=== PATIENT | female | born 1985 | race Caucasian/White ===

== ENCOUNTER 2021-10-08 13:44 | Outpatient (REF) | payer BC, SELFPAY | END 2021-10-08 13:45 | disposition home or self-care (01) | LOC: HO.LNP 13:44 | PROVIDERS: Visit Provider Hospitalist | DX: Z20.822 Contact with and (suspected) exposure to COVID-19 (principal) | CPT/HCPCS: U0003; U0005 ==

== ENCOUNTER 2024-05-24 18:56 | Emergency (ER) | payer OTHER, SELFPAY ==
--- NOTE | ~2024-05-24 | CT_ITS ---
EXAMINATION: CT HEAD WITHOUT CONTRAST CT CERVICAL SPINE WITHOUT CONTRAST CLINICAL INFORMATION: Fall with head strike on anticoagulation. Pain. COMPARISON: None available. TECHNIQUE: Contiguous axial imaging was performed from the skull base to vertex without intravenous administration of contrast. Contiguous axial CT images of the cervical spine were obtained without contrast. Sagittal and coronal reformats were provided and reviewed. This CT examination was performed using dose optimization techniques as appropriate, variously including the following: *Automated exposure control *Adjustment of mA and/or kV according to patient size (this includes techniques or standardized protocols for targeted exams where dose is matched to indication/reason for exam; i.e. extremities or head) *Use of iterative reconstruction technique DLP: 848 mGy-cm. FINDINGS: HEAD: There is no evidence of acute intracranial hemorrhage or territorial infarction. No abnormal mass effect or midline shift is seen. Urena to white matter differentiation is well preserved. No extra-axial fluid collections are identified. The ventricles are normal in size. There is no abnormal attenuation within the brain parenchyma. The osseous structures and soft tissues are normal. The mastoid air cells and visualized portions of the paranasal sinuses are well aerated. CERVICAL SPINE: Mild reversal of the normal cervical lordosis which may be positional or related muscle spasm. Grade 1 anterolisthesis of C4 on C5. No acute fracture or subluxation. No loss of vertebral body height. Multilevel loss of intervertebral disc height with endplate osteophytes at C4 through C6. Mild multilevel bilateral facet arthropathy. No lytic or blastic osseous lesion. Unremarkable prevertebral soft tissues. No abnormal soft tissue mass or fluid collection. The right thyroid is heterogeneous and enlarged with multiple hypodense nodules measuring up to 0.9 cm. Given heterogeneity and enlargement, ultrasound is recommended. Visualized lung apices are clear. Mild bilateral neural femoral stenosis at C4-C5 and C5-C6. No significant central canal stenosis. CT/CT cervical spine wo IV con IMPRESSION: HEAD: No acute intracranial hemorrhage or mass effect. CERVICAL SPINE: 1. No acute fracture or subluxation. Mild reversal of the normal cervical lordosis which may be positional or related to muscular spasm. Grade 1 anterolisthesis of C4 on C5. Multilevel degenerative disc disease and bilateral facet arthropathy with bilateral neural foraminal stenosis at C4-C5 and C5-C6. 2. Heterogeneous and enlarged right thyroid with multiple hypodense nodules measuring up to 0.9 cm. Given heterogeneity and enlargement, nonemergent ultrasound is recommended.
--- NOTE | ~2024-05-24 | XR_ITS ---
Examination: XR humerus LT, XR shoulder LT min 2V Indication: fall, r/o trauma Comparison: No pertinent prior studies are currently available for comparison. Technique: 3 views the left shoulder and 2 views of the left humerus obtained Findings: Humeral head is well-seated in the glenoid fossa. I do not appreciate any acute fracture or dislocation about the humerus. No significant bony degenerative or destructive changes to the glenohumeral or acromioclavicular joint space. Visualized left ribs and chest unremarkable. Normal appearance to the humerus with no obvious visualized elbow joint effusion. Surrounding soft tissues unremarkable. XR/XR shoulder LT min 2V Impression: No acute fracture or dislocation.
--- NOTE | ~2024-05-24 | XR_ITS ---
Examination: XR humerus LT, XR shoulder LT min 2V Indication: fall, r/o trauma Comparison: No pertinent prior studies are currently available for comparison. Technique: 3 views the left shoulder and 2 views of the left humerus obtained Findings: Humeral head is well-seated in the glenoid fossa. I do not appreciate any acute fracture or dislocation about the humerus. No significant bony degenerative or destructive changes to the glenohumeral or acromioclavicular joint space. Visualized left ribs and chest unremarkable. Normal appearance to the humerus with no obvious visualized elbow joint effusion. Surrounding soft tissues unremarkable. XR/XR humerus LT Impression: No acute fracture or dislocation.
[2024-05-24 18:58] VITALS: BP 120/94; PULSE 87; RESP 18; TEMP 36.8; O2SAT 99; BMI 22.0
--- NOTE | 2024-05-24 18:59 | ED_ITS ---
HPI - General Adult General Chief complaint: Fall Stated complaint: Fell and Hit head, Blacked out Time Seen by Provider: 05/24/24 21:30 Source: patient Mode of arrival: ambulatory Limitations: no limitations History of Present Illness ED Provider: Dr. Viola Atkins HPI narrative: Patient comes to the emergency room complaining of a head injury. Patient states that she fell yesterday and does not remember how it happened or where it happened. Patient remembers that she got home somehow and in the morning or her clothes were soaked wet. Patient admits that she has been drinking alcohol. Patient went today to an AA meeting and she was encouraged by the staff to come to the ED to get checked. Patient states that she has a bit pending in [place] for detox. They will pick her up tomorrow in the morning from her house and take her to the facility. Patient states that over last few days, she has had multiple falls. Related Data Home Medications ?Medication ?Instructions ?Recorded ?Confirmed ibuprofen 200 mg tablet 800 mg PO BID 10/08/21 Allergies Allergy/AdvReac Type Severity Reaction Status Date / Time bee pollen [BEE STINGS] Allergy Severe ANAPHYLAXIS Verified 05/24/24 19:02 Sulfa (Sulfonamide Allergy Severe ANAPHYLAXIS Verified 05/24/24 19:02 Antibiotics) [SULFA (SULFONAMIDE ANTIBIOTICS)] Review of Systems 2 Review of Systems: Constitutional : No Weight loss, No Fever, No Chills, No Night Sweats, No Fatigue, No Malaise ENT/Mouth : No Hearing loss, No Ear Pain, No Nasal Congestion, No Sinus Pain, No Hoarseness, No sore throat, No Rhinorrhea, No Swallowing Difficulty Eyes: No Eye Pain, No Swelling, No Redness, No Foreign Body, No Discharge, No Vision Changes Cardiovascular : No Chest Pain, No SOB, No Dyspnea on Exertion, No Orthopnea, No Edema, No Palpitations Respiratory : No Cough, No Sputum, No Wheezing, No Smoke Exposure, No Dyspnea Gastrointestinal : No Nausea, No Vomiting, No Diarrhea, No Constipation, No abdominal Pain, No Hematochezia, No Melena Genitourinary : no irregular bleeding, No Dysuria, No Urinary Frequency, No Hematuria, No Urinary Incontinence, No Urgency, No Flank Pain, No Urinary Flow Changes, No Hesitancy Musculoskeletal : No joint pain, No Myalgias, No Joint Swelling Skin : Patient has multiple ecchymosis brought her but in different stages of healing from multiple falls Neuro : No Weakness, No Numbness, No Paresthesias, No Loss of Consciousness, No Dizziness, No Headache Psych : No Anxiety/Panic, No Depression, No SI/HI/AH/VH, No Social Issues, Heme/Lymph: No Bruising, No Bleeding,No Lymphadenopathy Endocrine : No Polyuria, No Polydipsia, No Temperature Intolerance [facility] Past Medical History Medical History (Updated 05/24/24 @ 23:00 by Viola Atkins MD) Alcohol abuse with physiological dependence Social History Social History Alcohol intake: current Alcohol intake frequency: 3 or more drinks per day Alcohol type: hard liquor Patient Tobacco Use Status: Never used Tobacco Use of substances other than those prescribed or required for medical reasons: Unknown Advance Directives: No Advance Directives on File: No Do you have a plan to hurt others: No Plan Physical Exam ED Vital Signs: Vital Signs - 24 hr 05/24/24 18:58 05/24/24 21:15 Temperature 98.3 F 98.4 F Pulse Rate 87 76 Respiratory Rate 18 16 Blood Pressure 120/94 H 116/77 Pulse Oximetry 99 99 Oxygen Delivery Method Room Air Room Air BMI result Body Mass Index 22.0 Const Other: Appearance: Alert. Oriented X3. No acute distress. Eyes: Pupils equal, round and reactive to light. ENT: Pharynx normal. Neck: Normal inspection. Neck supple. No lymph nodes noted. No crepitus CVS: Normal heart rate and rhythm. Pulses normal. Normal S1 and S2 Respiratory: No respiratory distress. Breath sounds normal. No Wheezing. No rales Abdomen: Soft and nontender. No rigidity. No distention. Skin: Patient has multiple ecchymosis at different stages of healing Extremities: No lower extremity edema. No Lacerations. No Rash Neuro: Oriented X 3. No motor deficit. No sensory deficit. Moving all extremities. No slurred speech. CN 2 through 12 grossly intact Psych: calm, cooperative, normal affect Course Course Course Narrative: This is an RME: Additional HPI, ROS, PE not included below will be deferred to primary provider. RME assessment and note performed by: Linh Santa PA-C This is a [id number], with a hx of DVT on eliquis, and etoh abuse, who presents to the emergency department with complaints of headache s/p fall which occurred yesterday. Patient states that her found her on the ground passed out yesterday. Patient does not remember what happened. She has had increased incidence of falling recently. She went to an AA meeting where she was encouraged to come in to be evaluated. She is approximately 8-9 nips of alcohol this evening. No history of alcohol withdrawal seizures past. Plan: EKG, Ct head, ct cervical, labs Medications Administered Generic Name Dose Route Start Last Admin Trade Name Freq PRN Reason Stop Dose Admin Dextrose/Sodium Chloride 1,000 mls @ 999 mls/hr 05/24/24 21:45 05/24/24 22:21 D5ns IVCONT 999 mls/hr .[id number] MARJAN Administration Discontinued Medications Generic Name Dose Route Start Last Admin Trade Name Freq PRN Reason Stop Dose Admin Thiamine HCl 100 mg/ Sodium 101 mls @ 202 mls/hr 05/24/24 21:40 05/24/24 22:21 Chloride IV 05/24/24 22:09 202 mls/hr ONCE ONE Administration Medical Decision Making Medical Decision Making [facility] Narrative: -patient was given thiamine and D5 normal saline, patient's anion gap was slightly open. -my interpretation of head CT: No intracranial bleed -my interpretation of x-ray of the shoulder and humerus: No fracture, normal alignment -appointment pending tomorrow at 11:00. Today the plan is at her friend will pick her up, take her to her house. Tomorrow morning, the alcohol detox facility from [facility] will pick the patient up and take her to detox. Patient is aware of plan and agrees with it Differential Diagnosis Differential Diagnoses: The differential diagnosis associated with the presentation includes (Alcohol intoxication, alcohol dependence, arm/shoulder fracture, dislocation/contusion) Admission/Observation Consideration of admission/observation: Escalation of care including admission/observation considered (Given patient's multiple injuries in the setting of EtOH, observation was considered) Lab Data [facility] Lab Attestation statement: I reviewed the patient's lab results. 05/24/24 19:42 05/24/24 19:42 Labs: Lab Results 05/24/24 Range/Units 19:42 WBC 8.1 (4.8-10.8) X10*3/uL RBC 4.75 (4.20-5.50) X10*6/uL Hgb 14.7 (12.0-16.0) g/dl Hct 42.1 (37.0-47.0) % MCV 88.6 (80.0-98.0) fL MCH 30.9 (27.0-33.0) pg MCHC 34.9 (31.0-35.0) g/dl RDW 15.9 (11.0-16.0) % Plt Count 436 H (160-400) X10*3/uL MPV 9.0 L (9.4-12.3) fL Immature Gran % (Auto) 0.2 (0.0-0.4) % Neut % (Auto) 74.6 H (45-73) % Lymph % (Auto) 18.8 L (20-40) % [place] % (Auto) 4.9 (2-11) % Eos % (Auto) 0.6 (0-4) % Baso % (Auto) 0.9 (0-2) % Lymph # (Auto) 1.5 (1.2-4.9) X10*3/uL [place] # (Auto) 0.4 (0.1-1.2) X10*3/uL Eos # (Auto) 0.1 (0.0-0.4) X10*3/uL Baso # (Auto) 0.1 (0.0-0.2) X10*3/uL Abs Immat Gran (auto) 0.02 (0.00-0.03) X10*3/uL Absolute Neuts (auto) 6.0 (2.0-8.3) x10*3/uL Absolute Nucleated RBC 0.000 (0.0-0.012) X10*3/uL Nucleated RBC % (auto) 0.0 (0.0-0.2) /100WBC PT 14.9 H (11.1-13.3) SEC INR 1.2 H (0.9-1.1) APTT 32.3 (26.0-36.8) SEC Sodium 136 (135-145) mmol/L Potassium 4.1 (3.3-5.1) mmol/L Chloride 101 (96-108) mmol/L Carbon Dioxide 16 L (22-29) mmol/L Anion Gap 23 H (12-20) BUN 12 (9-16) mg/dL Creatinine 0.87 (0.5-1.4) mg/dL Estim Creat Clear Calc 82.0 Estimated GFR > 60 Random Glucose 104 (60-115) mg/dL Calcium 9.7 (8.4-10.2) mg/dL Magnesium 2.3 (1.6-2.6) mg/dL Total Bilirubin 0.6 (0.0-1.0) mg/dL Direct Bilirubin 0.2 (0.0-0.5) mg/dL AST 72 H (5-31) U/L ALT 62 H (0-31) U/L Alkaline Phosphatase 105 (39-117) U/L Troponin I High Sens < 2.7 (<3.5-17.0) ng/L Total Protein 7.7 (6.5-8.0) g/dL Albumin 4.8 (3.5-5.0) g/dL Urine Color Yellow Urine Appearance Clear Urine pH 5.5 (5.0-9.0) Ur Specific [place] <= 1.005 (1.005-1.025) Urine Protein Negative (Neg-Trace) mg/dL Urine Glucose (UA) Negative (Negative) mg/dL Urine Ketones Negative (Negative) mg/dL Urine Blood Negative (Negative) Urine Nitrite Negative (Negative) Ur Leukocyte Esterase Negative (Negative) Urine Opiates Screen Not Detected (Not Detect) Ur Buprenorphine Scrn Not Detected (Not Detect) ng/mL Ur Oxycodone Screen Not Detected (Not Detect) ng/mL Urine Methadone Screen Not Detected (Not Detect) ng/mL Urine Fentanyl Screen Not Detected (Not Detect) Ur Barbiturates Screen Not Detected (Not Detect) Ur Phencyclidine Scrn Not Detected (Not Detect) Ur Amphetamines Screen Not Detected (Not Detect) U Benzodiazepines Scrn Not Detected (Not Detect) Urine Cocaine Screen Not Detected (Not Detect) U Marijuana (THC) Screen Not Detected (Not Detect) Ethyl Alcohol 303 H* mg/dL Independent Interpretation I performed an independent interpretation of an: Plain X-Ray and CT Scan Radiology Impression Discussion of test interpretation with radiology: I have reviewed the radiologist's reading. Radiologist Impression: Findings: Humeral head is well-seated in the glenoid fossa. I do not appreciate any acute fracture or dislocation about the humerus. No significant bony degenerative or destructive changes to the glenohumeral or acromioclavicular joint space. Visualized left ribs and chest unremarkable. Normal appearance to the humerus with no obvious visualized elbow joint effusion. Surrounding soft tissues unremarkable. XR/XR shoulder LT min 2V Impression: No acute fracture or dislocation. Head and cervical spine CT: HEAD: There is no evidence of acute intracranial hemorrhage or territorial infarction. No abnormal mass effect or midline shift is seen. Urena to white matter differentiation is well preserved. No extra-axial fluid collections are identified. The ventricles are normal in size. There is no abnormal attenuation within the brain parenchyma. The osseous structures and soft tissues are normal. The mastoid air cells and visualized portions of the paranasal sinuses are well aerated. CERVICAL SPINE: Mild reversal of the normal cervical lordosis which may be positional or related muscle spasm. Grade 1 anterolisthesis of C4 on C5. No acute fracture or subluxation. No loss of vertebral body height. Multilevel loss of intervertebral disc height with endplate osteophytes at C4 through C6. Mild multilevel bilateral facet arthropathy. No lytic or blastic osseous lesion. Unremarkable prevertebral soft tissues. No abnormal soft tissue mass or fluid collection. The right thyroid is heterogeneous and enlarged with multiple hypodense nodules measuring up to 0.9 cm. Given heterogeneity and enlargement, ultrasound is recommended. Visualized lung apices are clear. Mild bilateral neural femoral stenosis at C4-C5 and C5-C6. No significant central canal stenosis. CT/CT head/brain wo IV con IMPRESSION: HEAD: No acute intracranial hemorrhage or mass effect. CERVICAL SPINE: 1. No acute fracture or subluxation. Mild reversal of the normal cervical lordosis which may be positional or related to muscular spasm. Grade 1 anterolisthesis of C4 on C5. Multilevel degenerative disc disease and bilateral facet arthropathy with bilateral neural foraminal stenosis at C4-C5 and C5-C6. 2. Heterogeneous and enlarged right thyroid with multiple hypodense nodules measuring up to 0.9 cm. Given heterogeneity and enlargement, nonemergent ultrasound is recommended. Critical Care Time Critical Care Time Critical Care Time: Yes Total Critical Care Time: 30 Attestation: I have personally provided critical care time. Time includes review of lab data, radiology results, discussion with consultants, and monitoring for potential decompensation. Intervention performed as documented. Discharge Plan Discharge Clinical Impression: Alcohol intoxication, Falls frequently, Multiple contusions Patient Disposition: Home, Self-Care Instructions: Abuse of Alcohol (ED), Contusion in Adults (ED) Additional Instructions: Please follow-up with your primary care physician tomorrow. If you have any worsening or new symptoms, please return to the emergency room or call 911 Prescriptions: No Action ibuprofen 200 mg tablet 800 mg PO BID Print Language: Tajik
--- NOTE | 2024-05-24 19:04 | ECG_ITS ---
Test Reason : FALL /ETOH Blood Pressure : / mmHG Vent. Rate : 085 BPM Atrial Rate : 085 BPM P-R Int : 112 ms QRS Dur : 074 ms QT Int : 396 ms P-R-T Axes : 037 055 059 degrees QTc Int : 471 ms Normal sinus rhythm Normal ECG No previous ECGs available Referred By: Linh Santa Electronically Signed By:TAMMIE BOYCE MD
--- NOTE | 2024-05-24 19:47 | MHC.EDTECH ---
Patient ekg taken and was read by Provider ,blood drawn and sent to lab .
[2024-05-24 19:49] LABS: MANUAL DIFF FLAG NO
[2024-05-24 19:52] LABS: Appearance Urine Clear; Basophils Absolute Auto 0.1 X10*3/uL (0.0-0.2); Basophils Percent Auto 0.9 % (0-2); Color Urine Yellow; Eosinophils Absolute Auto 0.1 X10*3/uL (0.0-0.4); Eosinophils Percent Auto 0.6 % (0-4); Glucose Urine UA Negative (Negative); Hematocrit 42.1 % (37.0-47.0); Hemoglobin 14.7 g/dl (12.0-16.0); Imm Gran Abs Auto 0.02 X10*3/uL (0.00-0.03); Imm Gran Pct Auto 0.2 % (0.0-0.4); Leukocyte Esterase Urine Negative (Negative); Lymphocytes Absolute Auto 1.5 X10*3/uL (1.2-4.9); Lymphocytes Percent Auto 18.8 % (20-40); Mean Corpuscular HGB Conc 34.9 g/dl (31.0-35.0); Mean Corpuscular Hemoglobin 30.9 pg (27.0-33.0); Mean Corpuscular Volume 88.6 fL (80.0-98.0); Monocytes Absolute Auto 0.4 X10*3/uL (0.1-1.2); Monocytes Percent Auto 4.9 % (2-11); Neutrophils Percent Auto 74.6 % (45-73); Nitrite Urine Negative (Negative); PH 5.5 (5.0-9.0); Platelet Count 436 X10*3/uL (160-400); Red Blood Count 4.75 X10*6/uL (4.20-5.50); Red Cell Distribution Width 15.9 % (11.0-16.0); Specific Gravity - Urine <= 1.005 (1.005-1.025); Urine Blood Negative (Negative); Urine Ketones Negative (Negative); Urine Protein Negative (Neg-Trace); White Blood Count 8.1 X10*3/uL (4.8-10.8)
[2024-05-24 19:55] LABS: INTERNATIONAL NORM RATIO 1.2 (0.9-1.1); Prothrombin Time 14.9 SEC (11.1-13.3)
[2024-05-24 19:58] LABS: Partial Thromboplastin Time 32.3 SEC (26.0-36.8)
[2024-05-24 20:08] LABS: Ethanol 303 mg/dL
[2024-05-24 20:11] LABS: Alanine Aminotransferase 62 U/L (0-31); Albumin Level 4.8 g/dL (3.5-5.0); Alkaline Phosphatase 105 U/L (39-117); Anion Gap 23 (12-20); Aspartate Amino Transferase 72 U/L (5-31); Bilirubin Direct 0.2 mg/dL (0.0-0.5); Bilirubin Total 0.6 mg/dL (0.0-1.0); Blood Urea Nitrogen 12 mg/dL (9-16); Calcium 9.7 mg/dL (8.4-10.2); Carbon Dioxide 16 mmol/L (22-29); Chloride 101 mmol/L (96-108); Estimated Glomerular Filt Rate > 60; Glucose Random 104 mg/dL (60-115); Magnesium 2.3 mg/dL (1.6-2.6); Potassium 4.1 mmol/L (3.3-5.1); Sodium 136 mmol/L (135-145); Total Protein 7.7 g/dL (6.5-8.0)
[2024-05-24 20:27] LABS: Amphetamine Screen Urine Not Detected (Not Detect); Barbiturates, Urine Not Detected (Not Detect); Benzodiazepines Screen Urine Not Detected (Not Detect); Buprenorphine Scr Not Detected (Not Detect); Cannabinoid Screen Urine Not Detected (Not Detect); Cocaine Screen Urine Not Detected (Not Detect); Fentanyl, urine Not Detected (Not Detect); Methadone Screen, Urine Not Detected (Not Detect); Opiate Screen Urine Not Detected (Not Detect); Oxycodone Screen Urine Not Detected (Not Detect); Phencyclidine Screen Urine Not Detected (Not Detect)
--- NOTE | 2024-05-24 20:40 | PC.NURSE ---
pt placing self in laying position on the floor and covering self with blanket, stating she is falling all the time and looking for her insurance cards. pt self ambulatory back to recliner, alarm placed, provider and [employer]om[employer] press feeder notified.
[2024-05-24 21:15] VITALS: BP 116/77; PULSE 76; RESP 16; TEMP 36.9; O2SAT 99
[2024-05-24 21:51] LABS: Troponin-I High Sensitivity < 2.7 ng/L (<3.5-17.0)
[2024-05-24] MEDS: Dextrose 5 % and 0.9 % NaCl 1,000 ML 999 ML IVCONT (22:21)
[2024-05-24] MEDS: Thiamine HCL 100 MG in 0.9 % Sodium Chloride 100 ML 202 MG IV (22:21)
--- NOTE | 2024-05-24 22:27 | PC.NURSE ---
pt reports she will have a safe ride home from a friend. reports she has ride provided to addiction clinic at 11am tomorrow. 20G placed in left ac, pt medicated per mar.
[2024-05-24] MEDS: Acetaminophen 325 MG TABLET 975 MG PO (23:02)
[2024-05-24 23:12] VITALS: BP 125/77; PULSE 78; RESP 20; TEMP 36.7; O2SAT 100
[2024-05-24 23:52] VITALS: BP 125/77; PULSE 78; RESP 20; TEMP 36.7; O2SAT 100
== END 2024-05-24 23:52 | disposition home or self-care (01) ==
PROVIDERS: Physician Assistant Medical; Emergency Provider Emergency Medicine; PCP Internal Medicine
DX: F10.120 Alcohol abuse with intoxication, uncomplicated (principal); Y90.8 Blood alcohol level of 240 mg/100 ml or more; R51.9 Headache, unspecified; S40.012A Contusion of left shoulder, initial encounter; S00.93XA Contusion of unspecified part of head, initial encounter; W18.30XA Fall on same level, unspecified, initial encounter; R29.6 Repeated falls; Z91.81 History of falling; Y93.9 Activity, unspecified; Y92.9 Unspecified place or not applicable; Y99.9 Unspecified external cause status; Z79.01 Long term (current) use of anticoagulants
CPT/HCPCS: 36415; 70450; 72125; 73030; 73060; 80048; 80076; 80307; 81003; 83735; 84484; 85025; 85610; 85730; 93005; 96365; 96375; 99284; 99285; J3411

== ENCOUNTER → 2024-05-24 19:04 | Outpatient (BNV) | payer OTHER, SELFPAY | PROVIDERS: Emergency Provider Emergency Medicine; PCP Internal Medicine; Visit Provider Internal Medicine Cardiovascular Disease | DX: F10.10 Alcohol abuse, uncomplicated (principal) | CPT/HCPCS: 93010 ==